=== PATIENT | female | born 1950 | race Caucasian/White ===

== ENCOUNTER 2020-12-15 19:21 | Emergency (ER) | payer OTHER ==
[2020-12-15 19:46] VITALS: BP 147/93; PULSE 98; TEMP 98.9; BMI 32.8
[2020-12-15] MEDS ORDERED: DIPHTH,PERTUSS(ACELL),TET 0.5 ML DISP.SYRIN IM ONE (19:53)
== END 2020-12-15 20:00 | disposition home or self-care (01) ==
LOC: FER 19:21
PROC: 0HQGXZZ Repair Left Hand Skin, External Approach (ICD-10-PCS; principal; 2020-12-15)
PROC: 3E0234Z Introduction of Serum, Toxoid and Vaccine into Muscle, Percutaneous Approach (ICD-10-PCS; 2020-12-15)
DX: S61.412A Laceration without foreign body of left hand, initial encounter (principal)
CPT/HCPCS: 90715; 99284-25

== ENCOUNTER 2020-12-26 10:05 | Emergency (ER) | payer OTHER ==
[2020-12-26 10:12] VITALS: BP 146/80; PULSE 80; TEMP 99.2; BMI 32.8
== END 2020-12-26 10:55 | disposition home or self-care (01) ==
LOC: FER 10:05
DX: Z48.02 Encounter for removal of sutures (principal)
CPT/HCPCS: 99281-25